=== PATIENT | male | born 1990 | race African-American/Black ===

== ENCOUNTER 2019-03-16 23:42 | Emergency (ER) | payer MEDICAID ==
[~2019-03-16] VITALS: Ht 177.8 cm; Wt 141.0 kg
[2019-03-17 02:50] VITALS: BP 128/78
== END 2019-03-17 03:08 | disposition home or self-care (01) ==
LOC: ER 23:42
DX: B35.6 Tinea cruris (principal)
CPT/HCPCS: 99283

== ENCOUNTER 2019-09-13 22:14 | Emergency (ER) | payer MEDICAID ==
[~2019-09-13] VITALS: Ht 180.3 cm; Wt 145.2 kg
[2019-09-14 02:50] VITALS: BP 122/71
== END 2019-09-14 02:51 | disposition home or self-care (01) ==
LOC: ER 22:14
DX: L03.811 Cellulitis of head [any part, except face] (principal)
CPT/HCPCS: 99283; Z7610

== ENCOUNTER 2020-03-04 16:54 | Emergency (ER) | payer MEDICAID ==
[~2020-03-04] VITALS: Ht 180.3 cm; Wt 145.0 kg
[2020-03-04] MEDS ORDERED: ONDANSETRON HCL 4MG/2ML INJ IV STA (20:47)
[2020-03-04] MEDS ORDERED: SODIUM CHLORIDE 0.9% 1,000 ML IV ONE (20:47)
[2020-03-04] MEDS ORDERED: KETOROLAC 30MG/ML VIAL IV STA (20:47)
[2020-03-04 21:34] LABS: CLARITY URINE CLEAR (CLEAR); COLOR URINE YELLOW (YELLOW); KETONES URINE NEGATIVE (NEGATIVE); LEUKOCYTE ESTERASE URINE NEGATIVE (NEGATIVE); NITRITE URINE NEGATIVE (NEGATIVE); OCCULT BLOOD URINE NEGATIVE (NEGATIVE); PROTEIN URINE NEGATIVE (NEGATIVE); SPECIFIC GRAVITY URINE 1.022 (1.005-1.030); UROBILINOGEN URINE 0.2 E.U./dL (0.2-1.0)
[2020-03-04 21:43] LABS: BASOPHILS % 0.6 % (0.0-2.0); EOSINOPHILS % 0.2 % (0.0-5.0); HEMATOCRIT. 46.3 % (42.0-52.0); HEMOGLOBIN. 15.8 g/dL (14.0-18.0); LYMPHOCYTES % 16.4 % (20.0-50.0); MEAN CORPUSCULAR HEMOGLOBIN 30.8 pg (28.0-32.0); MEAN CORPUSCULAR VOLUME 90.2 fL (80.0-94.0); MEAN PLATELET VOLUME 8.8 fl (7.4-10.4); MONOCYTES % 4.8 % (2.0-8.0); PLATELET 283 x1000/uL (130-400); RED BLOOD CELL COUNT 5.14 mill/uL (4.7-6.1); RED CELL DISTRIBUTION WIDTH 14.1 % (11.6-14.6)
[2020-03-04 21:48] LABS: CHLORIDE 102 mEq/L (98-107)
[2020-03-04 22:01] LABS: PROTHROMBIN TIME 10.5 sec (9.6-11.0)
[2020-03-04 23:04] VITALS: BP 152/81
== END 2020-03-04 23:50 | disposition home or self-care (01) ==
LOC: ER 16:54
DX: R10.13 Epigastric pain (principal); R11.0 Nausea
CPT/HCPCS: 36415; 74021; 80053; 81003; 83690; 85025; 85610; 96374; 96375; 99284; J1885; J2405; J7030